=== PATIENT | male | born 1965 | race Caucasian/White ===

== ENCOUNTER 2023-12-13 18:40 | Emergency (ER) | payer BC ==
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
[2023-12-13 19:10] LABS: Basophils # (A) 0.1 k/uL (0-0.2); Basophils % (A) 1 %; Eosinophils # (A) 0.2 k/uL (0-0.7); Eosinophils % (A) 1 %; HCT 52.3 % (39.0-53.0); HGB 17.2 gm/dL (13.0-17.5); Lymphocytes # (A) 1.2 k/uL (1.0-4.8); Lymphocytes % (A) 10 %; MCH 29.6 pg (25.0-35.0); MCHC 32.8 g/dL (31.0-37.0); Mean Platelet Volume 8.7; Monocytes # (A) 0.6 k/uL (0-1.0); Monocytes % (A) 5 %; Neutrophils # (A) 10.1 k/uL (1.3-7.7); Neutrophils % (A) 83 %; Platelet Count 220 k/uL (150-450); RBC 5.81 m/uL (4.30-5.90); WBC 12.3 k/uL (3.8-10.6)
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
[2023-12-13] MEDS: HYDROmorphone 1 MG/ML 1 ML SYRINGE IVP STA (20:30)
[2023-12-13 20:47] LABS: ALT 38 U/L (4-49); AST 44 U/L (17-59); African American GFR (CKD) 82 (>60 ml/min/1.73 sqM); Albumin 4.4 g/dL (3.5-5.0); Alcohol <10 mg/dL; Alkaline Phosphatase 80 U/L (38-126); Anion Gap 13 mmol/L; Blood Urea Nitrogen 23 mg/dL (9-20); Calcium 9.5 mg/dL (8.4-10.2); Carbon Dioxide 15 mmol/L (22-30); Chloride 109 mmol/L (98-107); Glucose 93 mg/dL (74-99); Non-African American GFR(CKD) 71 (>60 ml/min/1.73 sqM); Potassium 4.6 mmol/L (3.5-5.1); Sodium 137 mmol/L (137-145); Total Bilirubin 1.5 mg/dL (0.2-1.3)
[2023-12-13 20:51] LABS: Glucose,Whole Blood 91 mg/dL (70-110)
[2023-12-13 21:30] LABS: Prothrombin Time 11.1 sec (10.0-12.5)
[2023-12-13 21:40] LABS: Partial Thromboplastin Time 21.5 sec (22.0-30.0)
[2023-12-14 01:12] VITALS: BP 148/100; PULSE 106; RESP 20; TEMP 98.1
== END 2023-12-13 20:46 | disposition short-term general hospital (02) ==
LOC: EC 18:40
DX: S42.92XA Fracture of left shoulder girdle, part unspecified, initial encounter for closed fracture (principal); S06.6XAA Traumatic subarachnoid hemorrhage with loss of consciousness status unknown, initial encounter; V89.2XXA Person injured in unspecified motor-vehicle accident, traffic, initial encounter
CPT/HCPCS: 36415; 93005; 86900; 86901; 80053; 84484; 85025; 85610; 85730; 86850; 80320; 72125; 70450; 71260; 74177; 99291; 96374; J1170; Q9967